=== PATIENT | female | born 1990 | race Caucasian/White ===

== ENCOUNTER → 2017-04-20 | Outpatient (CLI) | payer OTHER, SELFPAY ==
[2017-04-20 11:52] LABS: BASO % 0.3 % (0.0-1.0); EOS # 0.2 K/mm3 (0.0-0.50); EOS % 1.4 % (0.0-3.0); LARGE UNSTAINED CELL # 0.1 K/mm3 (0.0-0.4); LYMPH # 2.3 K/mm3 (1.5-6.5); LYMPH % 16.2 % (24.0-44.0); MEAN CORPUSCULAR HEMOGLOBIN 28.9 pg (27.0-33.0); MEAN CORPUSCULAR HGB CONC 33.5 g/dl (32.0-36.5); MEAN CORPUSCULAR VOLUME 86.2 fl (80.0-96.0); MONO # 0.5 K/mm3 (0.0-0.8); MONO % 4.1 % (0.0-5.0); NEUTROPHILS # 10.2 K/mm3 (1.8-7.7); NEUTROPHILS % 76.9 % (36.0-66.0); PLATELET COUNT, AUTOMATED 269 k/mm3 (150-450); RED CELL DISTRIBUTION WIDTH 14.3 % (11.5-14.5); WHITE BLOOD COUNT 13.2 K/mm3 (4.0-10.0)
[2017-04-21 10:54] LABS: HBsAg Prenatal NEGATIVE (NEGATIVE)
== END ==
LOC: M LAB 10:52
PROVIDERS: ATTEND Advanced Practice Midwife
DX: Z34.82 Encounter for supervision of other normal pregnancy, second trimester (principal)

== ENCOUNTER → 2017-06-25 | Outpatient (CLI) | payer OTHER, MEDICAID ==
--- NOTE | 2017-06-25 15:52 | REP ---
Obstetric sonography: History: Supervision of for anatomy. Findings: Scanning through the gravid uterus demonstrates a viable single intrauterine gestation in a transverse head to the maternal left lie. motion is observed and heart rate is recorded at 149 beats per minute. A posterior grade 0 placenta is seen without evidence of previa. Amniotic fluid is subjectively normal. Closed cervical length is 5.0 cm. No extrauterine abnormalities observed. No anomaly is seen. Facial profile and spine are less than optimally seen due to position. The following additional anatomic structures are identified and felt to be sonographically unremarkable: cranium, choroid plexus, cavum, cerebellum and posterior fossa, lungs, four-chamber heart with left and right ventricular outflow tract views, diaphragm, left-sided stomach, abdominal wall cord insertion, three-vessel umbilical cord, kidneys and bladder, upper and lower extremities. Biometry chart: BPD 4.4 cm = 19 weeks 2 days HC 16.3 cm = 19 weeks 1 day AC 13.4 cm = 18 weeks 6 days FL 3.0 cm = 19 weeks 2 days HL 2.6 cm = 18 weeks 6 days CD 2.0 cm = 19 weeks 2 days HC/AC ratio normal 1.22. Cephalic index normal 0.75. Estimated weight 272 grams 0 pounds 9 ounces 45th percentile for 19 weeks 1 day. Impression: Viable single intrauterine gestation at 19 weeks 1 day by today's composite sonographic criteria. REBA by today's sonography November 18, 2017. Facial profile and spine less than optimally seen today. Transverse lie. Signed by Jayjay Landeros MD 06/25/2017 04:35 P
== END ==
LOC: M RAD 08:40
PROVIDERS: ATTEND Advanced Practice Midwife
DX: Z34.80 Encounter for supervision of other normal pregnancy, unspecified trimester (principal)

== ENCOUNTER → 2017-07-19 | Outpatient (CLI) | payer OTHER, MEDICAID ==
--- NOTE | 2017-07-20 06:04 | REP ---
Clinical: Anatomical re-evaluation. Comparison: 06/25/2017 . Findings: Examination demonstrates a single live intrauterine in cephalic presentation. motion is identified by technologist. Placenta is noted posteriorly and grade zero without evidence for placenta previa or abruption. Amniotic fluid volume is normal. Cervix measures 3.4 cm in length and appears closed. No evidence for nuchal cord. Gestational age by LMP 22 weeks 4 days with REBA 11/18/2017 . Gestational age by current measurements 22 weeks 1 day with REBA a 11/21/2017 . FHR equals 153 beats per minute. Estimated weight 511 grams ( 42nd percentile). Anatomical assessment demonstrates normal structures including cranium, choroid plexus, cavum, cerebellum/posterior fossa, facial features, lungs, four-chamber heart/ left ventricular outflow tract, diaphragm, stomach, cord insertion/three-vessel cord, kidneys/bladder, spine, and extremities. Impression: Single live intrauterine in cephalic presentation demonstrating appropriate interval growth. In conjunction with prior examination anatomical assessment is complete and normal. Signed by Juan Manuel Morse MD 07/20/2017 05:56 A
== END ==
LOC: M SMT 08:54
PROVIDERS: ATTEND Advanced Practice Midwife
DX: Z34.82 Encounter for supervision of other normal pregnancy, second trimester (principal)

== ENCOUNTER → 2017-08-06 | Outpatient (CLI) | payer OTHER, MEDICAID ==
[2017-08-06 18:04] LABS: BASO # 0.1 10^3/uL (0.0-0.2); BASO % 0.4 % (0.0-1.0); EOS # 0.2 10^3/uL (0.0-0.50); EOS % 1.7 % (0.0-3.0); IMMATURE GRANULOCYTE % 1.1 % (0-0); LYMPH # 2.6 10^3/uL (1.5-6.5); LYMPH % 19.2 % (24.0-44.0); MEAN CORPUSCULAR HEMOGLOBIN 29.8 pg (27.0-33.0); MEAN CORPUSCULAR VOLUME 90.3 fl (80.0-96.0); MONO % 7.1 % (0.0-5.0); NEUTROPHILS # 9.5 10^3/uL (1.8-7.7); NEUTROPHILS % 70.5 % (36.0-66.0); PLATELET COUNT, AUTOMATED 238 10^3/uL (150-450); RED CELL DISTRIBUTION WIDTH 14.1 % (11.5-14.5); WHITE BLOOD COUNT 13.5 10^3/uL (4.0-10.0)
== END ==
LOC: M SMT 13:54
PROVIDERS: ATTEND Advanced Practice Midwife
DX: Z34.83 Encounter for supervision of other normal pregnancy, third trimester (principal)

== ENCOUNTER → 2017-10-22 | Outpatient (REF) | payer OTHER, MEDICAID | LOC: M LAB REF 17:01 | DX: Z34.83 Encounter for supervision of other normal pregnancy, third trimester (principal); Z3A.00 Weeks of gestation of pregnancy not specified | CPT/HCPCS: 87186 ==

== ENCOUNTER 2017-11-19 14:38 | Inpatient (IN) | payer MEDICAID, OTHER ==
[2017-11-19 16:04] LABS: HEMATOCRIT 35.4 % (36.0-47.0); HEMOGLOBIN 11.6 g/dl (12.0-16.0); MEAN CORPUSCULAR HEMOGLOBIN 27.8 pg (27.0-33.0); MEAN CORPUSCULAR HGB CONC 32.8 g/dl (32.0-36.5); MEAN CORPUSCULAR VOLUME 84.7 fl (80.0-96.0); PLATELET COUNT, AUTOMATED 283 10^3/uL (150-450); RED BLOOD COUNT 4.18 10^6/uL (4.00-5.40); RED CELL DISTRIBUTION WIDTH 14.9 % (11.5-14.5); WHITE BLOOD COUNT 15.4 10^3/uL (4.0-10.0)
[2017-11-19] MEDS: LR 1,000 ML IV ×2 (16:14)
[2017-11-19] MEDS: OXYTOCIN DRIP 30 UNITS in APPROPRIATE DILUENT 1 EA IV (16:14)
[2017-11-19] MEDS: AMPICILLIN SOD 2 GM in APPROPRIATE DILUENT 20 ML IV (16:20)
[2017-11-19 16:25] LABS: ALT/SGPT 24 U/L (12-78); AST/SGOT 30 U/L (7-37); BILIRUBIN,TOTAL 0.3 MG/DL (0.2-1.0); CREATININE FOR GFR 0.69 MG/DL (0.55-1.02); GLOMERULAR FILTRATION RATE > 60.0 (>60); LDH LACTATE DEHYDROGENASE 188 U/L (84-246); URIC ACID 5.8 MG/DL (2.6-6.0)
[2017-11-19 17:43] LABS: AMPHETAMINES URINE REFLEX NEGATIVE (NEGATIVE); BARBITURATES URINE REFLEX NEGATIVE (NEGATIVE); BENZODIAZEPINES URINE REFLEX NEGATIVE (NEGATIVE); CANNABINOIDS URINE REFLEX NEGATIVE (NEGATIVE); COCAINE METABOLITE URINE REFLE NEGATIVE (NEGATIVE); METHADONE URINE REFLEX NEGATIVE (NEGATIVE); OPIATES URINE REFLEX NEGATIVE (NEGATIVE); PHENCYCLIDINE URINE REFLEX NEGATIVE (NEGATIVE)
[2017-11-19] MEDS ORDERED: AMPICILLIN SOD 1 GM in APPROPRIATE DILUENT 10 ML IV (20:00)
[2017-11-19] MEDS: AMPICILLIN SOD 1 GM in APPROPRIATE DILUENT 10 ML IV (20:15)
[2017-11-19] MEDS: CALCIUM CARBONATE 500 MG CHEW U/D PO ×2 (21:53)
[2017-11-20] MEDS: AMPICILLIN SOD 1 GM in APPROPRIATE DILUENT 10 ML IV (00:48)
[2017-11-20] MEDS ORDERED: FENTANYL 2MCG/ML ROPIVACAINE 0.2% IN 0.9% NACL 200ML IVBAG As Ordered (02:03)
[2017-11-20] MEDS ORDERED: ONDANSETRON 4MG/2ML VIAL (J2405) IV ×8 (03:20→06:15)
[2017-11-20] MEDS ORDERED: NALBUPHINE HCL 10 MG/ML AMP (J2300) IV ×4 (03:20→04:30)
[2017-11-20] MEDS ORDERED: NALOXONE INJ 0.4 MG/1 ML VIAL (J2310) IV ×6 (03:20→06:15)
[2017-11-20] MEDS ORDERED: METOCLOPRAMIDE INJ 10MG/2ML VIAL (J2765) IV ×2 (03:20)
[2017-11-20] MEDS ORDERED: OXYTOCIN INJ 10 UNITS/ML VIAL (J2590) As Ordered ×6 (03:25)
[2017-11-20] MEDS ORDERED: CHLOROPROCAINE PRES. FREE 3% INJ 20 ML VIAL (J2400) As Ordered ×2 (03:25)
[2017-11-20] MEDS ORDERED: UNASYN 3 GM VIAL As Ordered ×2 (03:28)
[2017-11-20 03:32] LABS: CORD GAS ABE A -6.1; CORD GAS ABE V -4.8; CORD GAS HCO3 A 19.9 MEQ/L; CORD GAS HCO3 V 21.9 MEQ/L; CORD GAS O2 SAT A 84.8 %; CORD GAS O2 SAT V 77.4 %; CORD GAS PCO2 A 41.3 mmHg; CORD GAS PCO2 V 45.8 mmHg; CORD GAS PH A 7.301 UNITS; CORD GAS PH V 7.297 UNITS; CORD GAS PO2 V 35.2 mmHg; CORD GAS SBC A 19.3 MEQ/L; CORD GAS TCO2 A 21.2 MEQ/L; CORD GAS TCO2 V 23.3 MEQ/L
[2017-11-20] MEDS ORDERED: MORPHINE PRES-FREE INJ 10 MG/10 ML VIAL (J2274) As Ordered ×2 (03:43)
[2017-11-20] MEDS ORDERED: ONDANSETRON 4MG/2ML VIAL (J2405) As Ordered ×2 (03:45)
[2017-11-20] MEDS ORDERED: KETOROLAC 60 MG/2 ML VIAL (J1885) As Ordered ×2 (03:45)
[2017-11-20] MEDS: LR 1,000 ML IV ×6 (04:13→09:56)
[2017-11-20] MEDS ORDERED: MOM 30ML SUSPENSION UDC PO ×2 (04:15)
[2017-11-20] MEDS: OXYTOCIN DRIP 30 UNITS in APPROPRIATE DILUENT 1 EA IV (04:15)
[2017-11-20] MEDS ORDERED: fentaNYL 100 MCG/2 ML INJECTION (J3010) IV ×2 (04:30)
[2017-11-20] MEDS ORDERED: MEPERIDINE INJ 25 MG/ML VIAL (J2175) IV ×2 (04:30)
[2017-11-20] MEDS ORDERED: PERCOCET 5MG/325MG TAB PO ×2 (04:30)
[2017-11-20] MEDS ORDERED: HYDROmorphone HCL 1 MG/ML SYRINGE (J1170) IV ×2 (04:30)
[2017-11-20] MEDS: AMPICILLIN SOD/SULBACTAM SOD 3 GM in D5W MINI-BAG PLUS 100 ML IV ×4 (05:00→22:16)
[2017-11-20] MEDS: PERCOCET 5MG/325MG TAB PO ×4 (05:45→14:55)
[2017-11-20] MEDS ORDERED: REFRIGERATOR IV KEYS XX ×2 (06:15)
[2017-11-20] MEDS ORDERED: diphenhydrAMINE INJ 50MG/ML VIAL (J1200) IV ×2 (06:15)
[2017-11-20] MEDS ORDERED: LACTATED RINGER'S 1000 ML IV ×2 (06:15)
[2017-11-20] MEDS ORDERED: FENTANYL/ROPIVACAINE/NACL BAG 200 ML EPIDURAL ×2 (06:15)
[2017-11-20] MEDS ORDERED: EPIDURAL COMMENT XX ×2 (06:15)
[2017-11-20] MEDS ORDERED: ePHEDrine INJ 50 MG/ML VIAL IV ×2 (06:15)
[2017-11-20] MEDS ORDERED: EPIDURAL/PCA KEYS XX ×2 (06:15)
[2017-11-20] MEDS: RHOGAM 300 MCG (1500 IU) INJ (J2790) IM ×2 (07:27)
[2017-11-20] MEDS: MEASLES,MUMPS,RUBELLA VACCINE INJ (MMR-II) (90707) SC ×2 (07:27)
[2017-11-20] MEDS: DOCUSATE SODIUM 100 MG CAP PO ×4 (09:56→20:03)
[2017-11-20] MEDS: PRENATAL VITAMINS CHEWABLE TABLET PO ×2 (09:57)
[2017-11-20] MEDS: KETOROLAC 30 MG/ML VIAL (J1885) IV ×6 (09:57→22:17)
[2017-11-21] MEDS: PERCOCET 5MG/325MG TAB PO ×6 (02:01→18:20)
[2017-11-21] MEDS: AMPICILLIN SOD/SULBACTAM SOD 3 GM in D5W MINI-BAG PLUS 100 ML IV ×2 (04:09→09:43)
[2017-11-21] MEDS: KETOROLAC 30 MG/ML VIAL (J1885) IV ×2 (04:09)
[2017-11-21 06:43] LABS: MEAN CORPUSCULAR HEMOGLOBIN 27.9 pg (27.0-33.0); MEAN CORPUSCULAR HGB CONC 32.6 g/dl (32.0-36.5); MEAN CORPUSCULAR VOLUME 85.7 fl (80.0-96.0); PLATELET COUNT, AUTOMATED 256 10^3/uL (150-450); RED BLOOD COUNT 3.15 10^6/uL (4.00-5.40); RED CELL DISTRIBUTION WIDTH 15.4 % (11.5-14.5); WHITE BLOOD COUNT 15.9 10^3/uL (4.0-10.0)
[2017-11-21 06:47] LABS: HEMOGLOBIN 8.8 g/dl (12.0-16.0)
[2017-11-21] MEDS: DOCUSATE SODIUM 100 MG CAP PO ×4 (09:43→20:07)
[2017-11-21] MEDS: PRENATAL VITAMINS CHEWABLE TABLET PO ×2 (09:43)
[2017-11-21] MEDS: IBUPROFEN 800 MG TAB PO ×4 (11:42→20:07)
[2017-11-22] MEDS: PERCOCET 5MG/325MG TAB PO ×2 (01:18)
[2017-11-22] MEDS: IBUPROFEN 800 MG TAB PO ×2 (03:59)
[2017-11-22] MEDS: PRENATAL VITAMINS CHEWABLE TABLET PO ×2 (09:31)
[2017-11-22] MEDS: DOCUSATE SODIUM 100 MG CAP PO ×2 (09:31)
== END 2017-11-22 11:00 | disposition home or self-care (01) | DRG 766 ==
LOC: M LDI 14:38 → M OBS 11-20 05:52
PROC: 10D00Z1 Extraction of Products of Conception, Low, Open Approach (ICD-10-PCS; principal; 2017-11-20 03:09)
PROC: 3E033VJ Introduction of Other Hormone into Peripheral Vein, Percutaneous Approach (ICD-10-PCS; 2017-11-20 03:09)
PROC: 10907ZC Drainage of Amniotic Fluid, Therapeutic from Products of Conception, Via Natural or Artificial Opening (ICD-10-PCS; 2017-11-20 03:09)
DX: O13.4 Gestational [pregnancy-induced] hypertension without significant proteinuria, complicating childbirth (principal); Z37.0 Single live birth; O48.0 Post-term pregnancy; Z3A.40 40 weeks gestation of pregnancy; O99.824 Streptococcus B carrier state complicating childbirth; O69.0XX0 Labor and delivery complicated by prolapse of cord, not applicable or unspecified